=== PATIENT | female | born 1965 | race Caucasian/White ===

== ENCOUNTER 2022-12-16 07:18 | Day surgery (SDC) | payer BC ==
[~2022-12-16 07:18] MED LIST: Lactated Ringers 1,000 ML IV SCH; Sodium Chloride 0.9% 10 ML Syringe FLUSH PRN; Sodium Chloride 0.9% 2.5 ML Syringe FLUSH PRN; Sodium Chloride 0.9% 20 ML SDV IV PRN
[2022-12-16] MEDS ORDERED: Propofol 200 MG/20 ML SDV ONE ×2 (07:31→08:28)
[2022-12-16] MEDS ORDERED: fentaNYL 100 MCG/2 ML SDV ONE ×2 (07:33→08:28)
[2022-12-16] MEDS ORDERED: Lidocaine 2% 5 ML SDV ONE (08:28)
== END 2022-12-16 10:00 | disposition home or self-care (01) ==
LOC: MW.SDS 07:18
PROVIDERS: ATTEND Surgery
DX: Z12.11 Encounter for screening for malignant neoplasm of colon (principal); K57.30 Diverticulosis of large intestine without perforation or abscess without bleeding; J45.30 Mild persistent asthma, uncomplicated; U07.1 COVID-19; E55.9 Vitamin D deficiency, unspecified; Z79.899 Other long term (current) drug therapy; Z98.890 Other specified postprocedural states
CPT/HCPCS: 45378; J2704; J3010; J7120; J3490